=== PATIENT | female | born 1985 | race Hispanic/Latino ===

== ENCOUNTER 2021-11-16 07:53 | Day surgery (SDC) | payer BC ==
[2021-11-14 15:30] VITALS: BP 121/62
[2021-11-14 15:58] LABS: BASOPHILS % (AUTO) 0.7 % (0.0-5.0); EOSINOPHILS % (AUTO) 1.9 % (0.0-8.0); HEMATOCRIT 29.9 % (36-48); MEAN CORPUSCULAR HEMOGLOBIN 20.6 pg (27.0-33.0); MEAN CORPUSCULAR HGB CONC 29.4 g/dL (32.0-36.0); MEAN CORPUSCULAR VOLUME 69.9 fL (79-99); MONOCYTES % (AUTO) 11.2 % (3.0-13.0); NEUTROPHILS % (AUTO) 59.9 % (40.0-77.0); PLATELET COUNT (AUTO) 324 K/uL (130-400); RED BLOOD CELL COUNT(AUTO) 4.28 MIL/uL (4.00-5.50); RED CELL DISTRIBUTION WIDTH 16.7 % (11.0-15.5); WHITE BLOOD COUNT (AUTO) 7.4 K/uL (4.8-10.8)
[~2021-11-16] VITALS: Ht 160 cm; Wt 74.0 kg
[~2021-11-16 07:53] MED LIST: CEFAZOLIN SODIUM 1 GM VIAL IVP SCH; LACTATED RINGERS 1000ML 1,000 ML IV SCH
[2021-11-16 08:20] VITALS: BP 112/70
[2021-11-16] MEDS ORDERED: BUPIVACAINE/PF 0.25% 30ML VIAL IJ ONE ×2 (08:48→10:49)
[2021-11-16] MEDS ORDERED: MIDAZOLAM HCL 1 MG/ML 2ML VIAL ONE (09:07)
[2021-11-16] MEDS ORDERED: FENTANYL CITRATE PF 50 MCG/1 ML 2ML VIAL ONE ×2 (09:07→10:36)
[2021-11-16] MEDS ORDERED: DEXAMETHASONE SOD PHOSPHATE 10MG/ML 1ML VIAL ONE (09:08)
[2021-11-16] MEDS ORDERED: PROPOFOL 10 MG/ML 20ML VIAL IV ONE ×2 (09:09→10:29)
[2021-11-16] MEDS ORDERED: ONDANSETRON 4MG INJ ONE ×2 (10:17→12:33)
[2021-11-16] MEDS ORDERED: CEFAZOLIN SODIUM 2 GM VIAL IV ONE (10:19)
[2021-11-16] MEDS ORDERED: ROCURONIUM 10MG/1ML SYR 10 MG/ML ML ONE (10:54)
[2021-11-16] MEDS ORDERED: EPHEDRINE SULFATE 50 MG/ML AMPULE ONE (10:55)
[2021-11-16] MEDS ORDERED: GLYCOPYRROLATE 1 MG/5 ML SYRINGE ONE (12:02)
[2021-11-16] MEDS ORDERED: KETOROLAC 30MG VIAL (30MG/ML) ONE (12:33)
[2021-11-16] MEDS ORDERED: MEPERIDINE-PF 25 MG/ML SYG ONE (12:44)
[2021-11-16 13:34] VITALS: BP 110/66
[2021-11-16 13:50] VITALS: BP 107/62
== END 2021-11-16 13:50 | disposition home or self-care (01) ==
LOC: DAH 07:53
PROVIDERS: ATTEND Obstetrics & Gynecology
DX: N92.0 Excessive and frequent menstruation with regular cycle (principal); D50.0 Iron deficiency anemia secondary to blood loss (chronic); Z20.822 Contact with and (suspected) exposure to COVID-19; Z30.2 Encounter for sterilization
CPT/HCPCS: 84703; 85025; 86850; 86900; 86901; 86923; 87426; 36415; 58670; 58563; A6260; A4663; A4351; A4606; J0690 ×2; J7120; J3010 ×2; J3490 ×4; J1100; J2250; J2704 ×2; J2405 ×2; J1885; J2175; C1769 ×3; A4215 ×2; A4649; A4930; A4223; A4222; A4221; A4600; A4510